=== PATIENT | female | born 1945 | race Caucasian/White ===

== ENCOUNTER 2024-10-27 09:38 | Observation (INO) ==
[2024-10-27] MEDS ORDERED: IOPAMIDOL 100 ML BOTTLE IV ONE (09:39)
[2024-10-27 10:48] LABS: Basophils # (Auto) 0.06 K/mcL (0.00-0.30); Eosinophils % (Auto) 5.2 % (0.0-7.0); Hemoglobin 10.9 g/dL (11.2-15.7); Lymphocytes # (Auto) 1.59 K/mcL (1.50-4.80); Lymphocytes % (Auto) 27.4 % (15.5-49.0); Mean Cell Volume 75.6 fL (80.0-100.0); Mean Corpuscular HGB Conc 30.3 g/dL (31.0-36.0); Mean Platelet Volume 10.5 fL (8.8-12.5); Monocytes # (Auto) 0.48 K/mcL (0.10-0.90); Monocytes % (Auto) 8.3 % (1.0-12.0); Neutrophils % (Auto) 57.8 % (38.0-78.0); Platelet Count 275 K/mcL (140-440); RBC 4.76 M/mcL (3.59-5.38); Red Cell Distribution Width 16.7 % (11.5-14.5); WBC 5.8 K/mcL (4.5-11.0)
[2024-10-27 11:11] LABS: Appearance,Urine Clear (Clear); Bilirubin,Urine Negative (Negative); Color,Urine Yellow; Glucose,Urine (UA) Negative (Negative); Ketones,Urine Negative (Negative); Leukocyte Esterase,Urine Negative /uL (Negative); Nitrate,Urine Negative (Negative); Protein,Urine Negative (Negative); Urine Blood Negative ery/mcL (Negative); Urine RBC 0 /hpf (0-3); Urine Squamous Epithelial Cell 0 /hpf (0-4); Urine WBC 0 /hpf (0-4); Urobilinogen,Urine 0.2 mg/dL
[2024-10-27 11:21] LABS: ALT/SGPT 11 U/L (<40); AST/SGOT 22 U/L (<32); Albumin 3.8 gm/dL (3.2-5.2); Albumin/Globulin Ratio 1.5 (1.0-2.3); Alkaline Phosphatase 82 U/L (39-117); Bilirubin,Total 0.3 mg/dL (0.1-1.0); Blood Urea Nitrogen 12 mg/dL (8-23); Calcium 8.9 mg/dL (8.6-10.4); Carbon Dioxide 23 mmol/L (22-30); Chloride 106 mmol/L (96-108); Globulin 2.5 gm/dL (2.2-3.7); Glomerular Filtration Rate 86; Glucose 100 mg/dL (70-105); Potassium 4.2 mmol/L (3.3-5.1); Sodium 141 mmol/L (133-145); Thyroid Stimulating Hormone 6.27 uIU/mL (0.27-5.01)
[2024-10-27 11:43] LABS: Free T4 (Free Thyroxine) 1.06 ng/dL (0.93-1.70)
[2024-10-27] MEDS: LABETALOL HCL 20 MG/4 ML VIAL IV ONE (12:58)
[2024-10-27] MEDS: hydrALAZINE 20 MG/ML VIAL IV ONE (12:58)
[2024-10-27] MEDS ORDERED: ONDANSETRON 4 MG/2 ML VIAL IV PRN (15:06)
[2024-10-27] MEDS ORDERED: hydrALAZINE 20 MG/ML VIAL IV PRN (15:06)
[2024-10-27] MEDS ORDERED: IPRATROPIUM/ALBUTEROL 3 ML AMPUL.NEB NEB PRN (15:06)
[2024-10-27] MEDS ORDERED: LIDOCAINE 5% OINT TUBE 35GM TOPICAL PRN (17:51)
[2024-10-27] MEDS ORDERED: METOPROLOL TARTRATE 5 MG/5 ML VIAL IV PRN (19:33)
[2024-10-27] MEDS: ACETAMINOPHEN 325 MG TABLET PO PRN (19:39)
[2024-10-27] MEDS: SENNOSIDES 1 TABLET PO SCH (20:18)
[2024-10-27] MEDS: ALPRAZolam 0.25 MG TABLET PO SCH (20:18)
[2024-10-27] MEDS: busPIRone 5 MG TABLET PO SCH (20:18)
[2024-10-27] MEDS: 0.9 % SODIUM CHLORIDE 10 ML SYRINGE IV SCH (20:19)
[2024-10-27] MEDS: DOCUSATE SODIUM 100 MG CAPSULE PO SCH (20:19)
[2024-10-27] MEDS: MEMANTINE 10 MG TABLET PO SCH (20:19)
[2024-10-27] MEDS ORDERED: traZODone HCL 50 MG TABLET PO PRN (21:00)
[2024-10-27] MEDS: MELATONIN 3 MG TABLET PO PRN (23:00)
[2024-10-28 07:56] LABS: HDL Cholesterol 52 mg/dL (>40); LDL Cholesterol,Calculated 163 mg/dL (<100); Non-HDL Cholesterol 181 mg/dL (<130); Triglycerides 89 mg/dL (<150)
[2024-10-28 07:58] LABS: Estimated Average Glucose(eAG) 114 mg/dL; Hemoglobin A1C 5.6 % Hgb (4.0-6.0)
[2024-10-28] MEDS: LEVOTHYROXINE 50 MCG TABLET PO SCH (07:58)
[2024-10-28] MEDS: PANTOPRAZOLE 40 MG TABLET PO SCH (07:58)
[2024-10-28] MEDS: POTASSIUM CHLORIDE 10 MEQ TABLET PO SCH (08:52)
[2024-10-28] MEDS: ASPIRIN 81 MG TAB.CHEW PO SCH (08:52)
[2024-10-28] MEDS: ATORVASTATIN 40 MG TABLET PO SCH (08:52)
[2024-10-28] MEDS: MELOXICAM 7.5 MG TABLET PO SCH (08:53)
[2024-10-28] MEDS: CITALOPRAM 20 MG TABLET PO SCH (08:53)
[2024-10-28] MEDS: METOPROLOL SUCCINATE 50 MG TAB.XL.24H PO SCH (08:53)
[2024-10-28] MEDS: LOSARTAN 50 MG TABLET PO SCH (08:54)
[2024-10-28] MEDS: DONEPEZIL 10 MG TABLET PO SCH (09:46)
[2024-10-28] MEDS: GABAPENTIN 300 MG CAPSULE PO SCH (09:46)
== END 2024-10-28 14:35 | disposition home health service (06) ==
LOC: MEDSUR 09:38 → ED 09:38 → MEDSUR 15:09
PROVIDERS: ADMIT Internal Medicine; ATTEND Internal Medicine